=== PATIENT | male | born 1985 | race Caucasian/White ===

== ENCOUNTER 2016-04-28 09:15 | Emergency (ER) ==
[2016-04-28 09:20] VITALS: BP 103/60
--- NOTE | 2016-04-28 09:57 | PROVIDER DOCUMENTATION ---
HPI-Musculoskeletal Pain/Inj - GENERAL Chief Complaint: Extremity Injury Stated Complaint: FALL/FOOT INJURY Time Seen by Provider: 04/28/16 09:32 Source: patient - HX OF PRESENT ILLNESS-MUSKULOSKELTAL Nature of Presenting Problem: 30 y/o WM c/o L lateral foot pain x 2 weeks. Pt states he was walking down a set of stairs 2 weeks ago when his foot slid and the lateral aspect hit the railing. States that since then he has had pain 8/10, worse with ambulation on the aspect of foot. Pt thought it was bruised, but came in today to be evaluated, as it had not gotten better. Denies any ankle or knee pain. Review of Systems - Adult - REVIEW OF SYSTEMS - ADULT Constitutional: reports: no symptoms reported. denies: chills, fever Eyes: reports: no symptoms reported. denies: blurred vision, double vision Ears, Nose, Mouth & Throat: reports: no symptoms reported. denies: ear pain, nose pain Cardiovascular: reports: no symptoms reported. denies: chest pain, palpitations Respiratory: reports: no symptoms reported. denies: dyspnea on exertion, shortness of breath Gastrointestinal: reports: no symptoms reported. denies: abdominal pain, nausea , vomiting Genitourinary: reports: no symptoms reported. denies: dysuria, frequency Musculoskeletal: reports: see HPI, joint pain. denies: back pain, neck pain Integumentary: reports: no symptoms reported. denies: nail changes, rash Neurological: reports: no symptoms reported. denies: numbness, paresthesia Psychiatric: reports: no symptoms reported Endocrine: reports: no symptoms reported. denies: cold intolerance, heat intolerance Hematologic/Lymphatic: reports: no symptoms reported. denies: easy bruising, prolonged bleeding Allergic/Immunologic: reports: no symptoms reported All Other Systems: Reviewed and Negative Past History - Adult - PAST MEDICAL HISTORY-ADULT Review of Records: reports: Nursing Assessment Review, Medications Reviewed - SOCIAL HISTORY Smoking: cigarettes, less than 1 pack/day Provider spent 3-5 mins advising pt. on dangers of tobacco.: Discussed manners to quit use, and f/u contacts for add'l counseling. Alcohol Use Frequency: never Physical Exam-Injury Related - Physical Exam-Injury Related Initial Vital Signs Reviewed: Yes General Appearance: alert, mild distress Eyes: pink conjunctivae Head, Ears, Nose, Mouth & Throat: normocephalic/atraumatic Neck: normal inspection Respiratory: no respiratory distress Cardiovascular: normal peripheral pulses, regular rate, rhythm Peripheral Pulses: dorsalis-pedis (R): 2+, dorsalis-pedis (L): 2+ Extremity: normal range of motion, normal inspection, normal capillary refill, tenderness (5th MT on L foot, worse at distal aspect.). negative: abnormal NV exam, deformity, pulse deficit Integumentary: normal color, warm/dry Neurologic: negative: aphasia, sensory deficit Psych/Mental Status: AL, normal mood/affect, normal thought content, normal thought process, oriented x 3 Progress - PLAN OF CARE/RESULTS Progress/Plan/Lab Results: Orders Category Date Time Status Crutches DIRECTED Care 04/28/16 09:54 Active OCL Splint DIRECTED Care 04/28/16 09:54 Active FOOT COMPLETE LEFT [RAD] Stat Exams 04/28/16 09:21 Taken Vital Signs Temp Pulse Resp BP Pulse Ox 04/28/16 09:19 97.4 F L 79 18 103/60 100 No Known Allergies Allergy (Verified 01/24/13 17:42) Cephalexin [Keflex] 500 mg PO DIRECTED #20 capsule 01/24/13 Tramadol [Ultram] 50 mg PO Q8HR #20 tablet 04/28/16 Discussed medication use and f/u with pt. Discussed Xray results and importance of not smoking with pt. - XRAY 1 XRAY: Left XRAY Study: Foot Impression: See EMR Report (small fracture at head of 5th Metatarsal, per Dr. Dale) Procedures - SPLINTING Left Lower Extremity Pre-Procedure Neurovascular Exam: Intact Splint Application (Hand-Made): Posterior OCL Applied By: ED Nurse Post Procedure Neurovascular Exam: Intact Procedure Comment: Pt tolerated well Departure - Departure Time of Disposition Order: 09:51 DIAGNOSIS: Closed fracture of 5th metacarpal Qualifiers: Encounter type: initial encounter Metacarpal location: other portion of metacarpal Fracture alignment: displaced Laterality: left Qualified Code(s): S62.397A - Other fracture of fifth metacarpal bone, left hand, initial encounter for closed fracture Disposition: HOME 01 Certified Medical Emergency: Emergent Condition: Stable Additional Instructions: Follow up with specialist for further evaluation and management. Take medications as directed. RICE as needed. No weight bearing for 14 days or until cleared. ED Follow Up Instructions: You have been treated by a care provider in the Emergency Department. These instructions are being provided to you so you can have an understanding of how to care for yourself upon discharge. Upon discharge from the Emergency Department, you are responsible for making arrangements for follow-up care by a physician of your choice. Take all prescribed medications as directed. Return to the Emergency Department immediately for any new or worsening symptoms. You may call the Physician Referral phone number at [phone] to obtain a list of Physicians who are taking new patients. Prescriptions: Tramadol [Ultram] 50 mg PO Q8HR #20 tablet Referrals: None,PCP [Primary Care Provider] - Bee Garduno MD [STAFF PHYSICIAN] - Forms: Return to School/Parent Work Instructions: Metacarpal Fracture-SportsMed Attestation - Physician/ Mid-level Attestation Patient care was provided by Mid-level provider (INTENSIVE CARE UNIT NURSE/PA):: Yes Mid-level provider:: Melvina Bob Mid-level documentation review:: The Mid-level provider documentation, treatment plan and medical decision making was reviewed by the physician who agrees with all treatment and medical decision making by the P.
--- NOTE | 2016-04-28 10:02 | Diag Imaging Result Document ---
PROCEDURE NAME: FOOT COMPLETE LEFT - 04/28/2016 X-RAY LEFT FOOT 3 VIEWS: COMPARISON: None. FINDINGS: There is a possible small fracture at the head of the 5th metatarsal. No dislocations. Joint spaces are clear. IMPRESSION: Possible small fracture at the head of the 5th metatarsal.
== END 2016-04-28 10:35 | disposition home or self-care (01) ==
LOC: ED 09:15
DX: S62.397A Other fracture of fifth metacarpal bone, left hand, initial encounter for closed fracture (principal); M79.672 Pain in left foot; F17.210 Nicotine dependence, cigarettes, uncomplicated; Z71.6 Tobacco abuse counseling; W10.9XXA Fall (on) (from) unspecified stairs and steps, initial encounter